=== PATIENT | female | born 1985 | race Caucasian/White ===

== ENCOUNTER 2017-09-14 14:10 | Emergency (ER) | payer MEDICAID ==
[~2017-09-14] VITALS: Ht 165.1 cm; Wt 101.6 kg
[2017-09-14 14:37] VITALS: BP 122/76
--- NOTE | 2017-09-14 17:59 | NUR ---
Patient ambulated to bed 1. RN evaluating patient at bedside.
--- NOTE | 2017-09-14 18:10 | NUR ---
PATIENT PRESENTS TO ED WITH c/o lower back pain x 4 days ---denies recent trauma, non radiating, taking advil, hot baths, stretches with no decrease in pain denies incontinence hx--psoriasis rx---none DENIES N/V/D; SKIN IS PINK/WARM/DRY; AAOX4 WITH EVEN AND STEADY GAIT; LUNGS CLEAR BL; HR EVEN AND REGULAR; PT DENIES ANY FEVER, CP, SOB, OR COUGH AT THIS TIME; PATIENT STATES PAIN OF 10/10 AT THIS TIME; VSS; PATIENT POSITIONED FOR COMFORT; HOB ELEVATED; BEDRAILS UP X2; BED DOWN. ER MD MADE AWARE OF PT STATUS.
--- NOTE | 2017-09-14 18:54 | NUR ---
DR ROSEN EVALUTING [facility] PT AT BEDSIDE
[2017-09-14] MEDS ORDERED: KETOROLAC 30 MG/ML VIAL IM ONE (19:05)
--- NOTE | 2017-09-14 19:18 | NUR ---
PT REFUSED TORADOL MED, DR ROSEN NOTIFIED
--- NOTE | 2017-09-14 19:24 | NUR ---
Patient discharged with v/s stable. Written and verbal after care instructions given and explained. Patient alert, oriented and verbalized understanding of instructions. Ambulatory with steady gait. All questions addressed prior to discharge. ID band removed. Patient advised to follow up with PMD. Rx of NAPROSYN, FLEXERIL given. Patient educated on indication of medication including possible reaction and side effects. Opportunity to ask questions provided and answered.
[2017-09-14 19:25] VITALS: BP 131/84
== END 2017-09-14 19:24 | disposition home or self-care (01) ==
LOC: MED 14:10
DX: M54.42 Lumbago with sciatica, left side (principal); R03.0 Elevated blood-pressure reading, without diagnosis of hypertension
CPT/HCPCS: 99283; J1885